=== PATIENT | female | born 1935 | race Caucasian/White ===

== ENCOUNTER 2020-04-01 14:57 | Emergency (ER) | payer MEDICARE, BC ==
[~2020-04-01] VITALS: Ht 162.6 cm; Wt 73.0 kg
[2020-04-01 15:00] VITALS: BP 119/61
--- NOTE | 2020-04-01 15:06 | NUR ---
BIB [facility] AFTER ALTERED MENTAL STATUS, L SIDE WEEKNESS, L SIDE FACIAL DROOP, X5 MIN. SYMPTOMS RESOLVED. HX TIA. BELT PICKER [facility] PIV 20G LAC. PT CONNECTED TO MONITORING. EKG COMPLETE. CALL LIGHT IN REACH. PT STATES SHE "FEELS BACK TO NORMAL".
[2020-04-01 15:37] LABS: BASOPHILS % (AUTO) 1 % (0-1); EOSINOPHILS % (AUTO) 1 % (1-7); LYMPHOCYTES % (AUTO) 15 % (22-44); MEAN CORPUSCULAR HEMOGLOBIN 31.6 pg (27.0-34.8); MEAN CORPUSCULAR HGB CONC 33.7 g/dL (32.4-35.8); MEAN PLATELET VOLUME 8.2 fL (7.4-10.4); MONOCYTES % (AUTO) 9 % (2-9); NEUTROPHILS % (AUTO) 74 % (42-75); PLATELET COUNT 265 x10^3/uL (130-400); RED CELL DISTRIBUTION WIDTH 13.9 % (9.6-15.2)
[2020-04-01 15:46] LABS: ALBUMIN 3.6 g/dL (3.4-5.0); ANION GAP 8 mmol/L (5-15); CALCIUM 9.5 mg/dL (8.5-10.1); CHLORIDE 108 mmol/L (98-107)
[2020-04-01 15:47] LABS: MD NO
--- NOTE | 2020-04-01 16:01 | NUR ---
SPOKE WITH PT SON. PT DAUGHTER TO COME PICK PT UP WHEN DC.
== END 2020-04-01 16:44 | disposition home or self-care (01) ==
LOC: ED 16:15
DX: G45.9 Transient cerebral ischemic attack, unspecified (principal); R41.82 Altered mental status, unspecified; Z86.73 Personal history of transient ischemic attack (TIA), and cerebral infarction without residual deficits; Z87.891 Personal history of nicotine dependence
CPT/HCPCS: 36415; 80048; 82040; 85025; 93005; 99284